=== PATIENT | female | born 1945 | race Caucasian/White ===

== ENCOUNTER 2017-10-07 19:20 | Inpatient (IN) | payer MEDICARE, BC ==
[~2017-10-07] VITALS: Ht 157.5 cm; Wt 62.7 kg
[~2017-10-07 19:20] MED LIST: ACET325T55 PO; CLOP75TA33 PO; ESTR0.624 PO; KRIL500C PO; LEVO50TA PO; LORA1TAB PO; METO-411 PO; PITA4TAB2 PO
[2017-10-07 20:36] LABS: BASOPHILS % (AUTO) 0.2 % (0-1); EOSINOPHILS # (AUTO) 0.2 X10'3 (0-0.9); EOSINOPHILS % (AUTO) 1.9 % (0-6); HEMATOCRIT 39.7 % (35.0-45.0); HEMOGLOBIN 13.7 g/dl (12.0-16.0); LYMPHOCYTES % (AUTO) 18.5 % (21-51); MEAN CORPUSCULAR HEMOGLOBIN 32.2 PG (27.0-31.0); MEAN CORPUSCULAR HGB CONC 34.5 % (33.0-36.5); MEAN CORPUSCULAR VOLUME 93.5 FL (78-98); MEAN PLATELET VOLUME 7.4 FL (7.4-10.4); MONOCYTES # (AUTO) 0.8 X10'3 (0-0.9); MONOCYTES % (AUTO) 7.8 % (2-12); NEUTROPHILS # (AUTO) 7.6 X10'3 (1.8-7.7); NEUTROPHILS % (AUTO) 71.6 % (42-75); PLATELET COUNT 368 X10'3 (140-440); RED BLOOD COUNT 4.24 X10'6 (4.20-5.60); WHITE BLOOD COUNT 10.6 X10'3 (4.5-11.0)
[2017-10-07 21:00] LABS: ALANINE AMINOTRANSFERASE 32 U/L (12-78); ALBUMIN 4.1 G/DL (3.4-5.0); ALBUMIN/GLOBULIN RATIO 1.1 (1.1-1.5); ALKALINE PHOSPHATASE 72 IU/L (46-116); ANION GAP 8 (8-16); ASPARTATE AMINO TRANSFERASE 27 U/L (10-37); BILIRUBIN,TOTAL 0.3 MG/DL (0.1-1.0); BLOOD UREA NITROGEN 39 MG/DL (7-18); BUN/CREATININE RATIO 27.9 (6.6-38.0); CALCIUM 9.6 MG/DL (8.5-10.1); CHLORIDE 105 MMOL/L (99-107); GLUCOSE 129 MG/DL (70-104); MAGNESIUM 2.1 MG/DL (1.5-2.4); POTASSIUM 4.1 MMOL/L (3.5-5.1); SODIUM 143 MMOL/L (135-145); TOTAL CARBON DIOXIDE 30.4 MMOL/L (24-32); TOTAL PROTEIN 7.8 G/DL (6.4-8.2); eGFR 37 ML/MIN
[2017-10-07] MEDS ORDERED: metoprolol tartrate 1mg/ml inj IV ONE (22:15)
[2017-10-07] MEDS ORDERED: acetaminophen 325mg tablet PO PRN (22:30)
[2017-10-07] MEDS ORDERED: magnesium hydroxide 30ml (MOM) UD suspension PO PRN (22:30)
[2017-10-07] MEDS ORDERED: mag hydrox/Alum hydrox/simeth 30ml oral suspension PO PRN (22:30)
[2017-10-07] MEDS ORDERED: ondansetron/PF 4mg/2ml inj IV PRN (22:30)
[2017-10-07] MEDS ORDERED: LORazepam 1 MG tablet PO PRN (22:40)
[2017-10-07] MEDS: normal saline 1000ml 1,000 ML IV SCH (22:41)
[2017-10-07] MEDS: metoprolol tartrate 50mg tablet PO SCH (23:00)
[2017-10-07 23:07] LABS: HEMOGLOBIN A1C 6.4 % (4.5-6.2)
[2017-10-07 23:30] VITALS: BP 143/70
[2017-10-08] VITALS (13 sets, daily range): BP systolic 107–165; BP diastolic 56–89
[2017-10-08] MEDS: normal saline 1000ml 1,000 ML IV SCH (00:03)
[2017-10-08 03:22] LABS: BASOPHILS % (AUTO) 0.5 % (0-1); EOSINOPHILS # (AUTO) 0.2 X10'3 (0-0.9); EOSINOPHILS % (AUTO) 2.2 % (0-6); HEMATOCRIT 35.9 % (35.0-45.0); HEMOGLOBIN 12.5 g/dl (12.0-16.0); LYMPHOCYTES # (AUTO) 2.9 X10'3 (1.1-4.8); LYMPHOCYTES % (AUTO) 33.2 % (21-51); MEAN CORPUSCULAR HEMOGLOBIN 32.3 PG (27.0-31.0); MEAN CORPUSCULAR HGB CONC 34.8 % (33.0-36.5); MEAN CORPUSCULAR VOLUME 92.7 FL (78-98); MEAN PLATELET VOLUME 7.7 FL (7.4-10.4); MONOCYTES # (AUTO) 0.8 X10'3 (0-0.9); MONOCYTES % (AUTO) 8.8 % (2-12); NEUTROPHILS # (AUTO) 4.9 X10'3 (1.8-7.7); NEUTROPHILS % (AUTO) 55.3 % (42-75); PLATELET COUNT 312 X10'3 (140-440); RED BLOOD COUNT 3.88 X10'6 (4.20-5.60); WHITE BLOOD COUNT 8.8 X10'3 (4.5-11.0)
[2017-10-08 03:32] LABS: ALANINE AMINOTRANSFERASE 30 U/L (12-78); ALBUMIN 3.7 G/DL (3.4-5.0); ALBUMIN/GLOBULIN RATIO 1.2 (1.1-1.5); ALKALINE PHOSPHATASE 63 IU/L (46-116); ANION GAP 8 (8-16); ASPARTATE AMINO TRANSFERASE 26 U/L (10-37); BILIRUBIN,TOTAL 0.3 MG/DL (0.1-1.0); BLOOD UREA NITROGEN 37 MG/DL (7-18); BUN/CREATININE RATIO 28.5 (6.6-38.0); CALCIUM 8.8 MG/DL (8.5-10.1); CHLORIDE 106 MMOL/L (99-107); CHOL/HDL RATIO 3.1 (0.00-4.99); CHOLESTEROL 208 MG/DL (0-200); GLUCOSE 97 MG/DL (70-104); HDL CHOLESTEROL 67 MG/DL (35-60); LDL CHOLESTEROL 112 MG/DL (50-100); SODIUM 141 MMOL/L (135-145); TOTAL CARBON DIOXIDE 27.5 MMOL/L (24-32); TOTAL PROTEIN 6.9 G/DL (6.4-8.2); TRIGLYCERIDES 79 MG/DL (20-135); eGFR 40 ML/MIN
[2017-10-08] MEDS ORDERED: levoTHYROXINE 25mcg tablet PO SCH (07:00)
[2017-10-08] MEDS ORDERED: clopidogrel 75mg tablet PO SCH (08:00)
[2017-10-08] MEDS ORDERED: PITAVASTATIN CALCIUM 4 MG PO SCH (08:00)
[2017-10-08] MEDS ORDERED: atorvastatin 20mg tablet PO SCH (08:00)
[2017-10-08] MEDS: metoprolol tartrate 50mg tablet PO SCH (08:18)
[2017-10-08] MEDS ORDERED: metoprolol tartrate 1mg/ml inj IV PRN (09:25)
[2017-10-08] MEDS ORDERED: regadenoson 0.4mg/5ml syringe IV ONE ×2 (09:25→11:55)
[2017-10-08] MEDS ORDERED: aminophylline 250mg/10ml inj. IV PRN (09:25)
[2017-10-08] MEDS ORDERED: nitroGLYCERIN 0.4mg SUBLingual tab SL PRN (09:25)
[2017-10-08] MEDS ORDERED: aminophylline inj. 0 ML IV ONE (11:55)
[2017-10-08] MEDS ORDERED: METO50TA16 PO (16:03)
[2017-10-08] MEDS ORDERED: NITR0.4T51 SL (16:03)
[2017-10-08] MEDS ORDERED: NIT5P TD (16:03)
== END 2017-10-08 17:00 | disposition home or self-care (01) | DRG 305 ==
LOC: ER 19:20 → ED HOLD 22:26 → EDBEDREQ 23:08 → PCU 3S 23:30
PROVIDERS: ADMIT Internal Medicine; ATTEND Internal Medicine
PROC: 4A02XM4 Measurement of Cardiac Total Activity, External Approach (ICD-10-PCS; principal; 2017-10-08)
PROC: 3E073KZ Introduction of Other Diagnostic Substance into Coronary Artery, Percutaneous Approach (ICD-10-PCS; 2017-10-08)
DX: I10 Essential (primary) hypertension (principal); N17.9 Acute kidney failure, unspecified; E78.5 Hyperlipidemia, unspecified; F41.9 Anxiety disorder, unspecified; Z90.710 Acquired absence of both cervix and uterus; Z90.49 Acquired absence of other specified parts of digestive tract; Z88.6 Allergy status to analgesic agent; Z91.041 Radiographic dye allergy status; Z79.899 Other long term (current) drug therapy; Z79.02 Long term (current) use of antithrombotics/antiplatelets; Z86.73 Personal history of transient ischemic attack (TIA), and cerebral infarction without residual deficits
CPT/HCPCS: 36415; 71045; 78452; 80053; 80061; 83036; 83735; 83880; 84484; 85025; 87070; 93005; 93017; 93306; A9500; J0280; J3490; J7030

== ENCOUNTER 2019-05-27 10:42 | Emergency (ER) | payer MEDICARE, BC ==
[~2019-05-27] VITALS: Ht 157.5 cm; Wt 64.0 kg
[~2019-05-27 10:42] MED LIST changes: -KRIL500C PO; -METO-411 PO; +METO50TA16 PO; +NITR0.4T51 SL
[2019-05-27 11:04] LABS: BASOPHILS # (AUTO) 0.1 X10'3 (0-0.2); BASOPHILS % (AUTO) 0.8 % (0-1); EOSINOPHILS # (AUTO) 0.3 X10'3 (0-0.9); EOSINOPHILS % (AUTO) 4.1 % (0-6); HEMATOCRIT 43.3 % (35.0-45.0); HEMOGLOBIN 14.6 g/dl (12.0-16.0); LYMPHOCYTES # (AUTO) 2.9 X10'3 (1.1-4.8); LYMPHOCYTES % (AUTO) 43.1 % (21-51); MEAN CORPUSCULAR HEMOGLOBIN 32.2 PG (27.0-31.0); MEAN CORPUSCULAR HGB CONC 33.6 g/dL (33.0-36.5); MEAN CORPUSCULAR VOLUME 95.7 FL (78-98); MEAN PLATELET VOLUME 7.5 FL (7.4-10.4); MONOCYTES # (AUTO) 0.7 X10'3 (0-0.9); NEUTROPHILS # (AUTO) 2.8 X10'3 (1.8-7.7); PLATELET COUNT 366 X10'3 (140-440); RED BLOOD COUNT 4.52 X10'6 (4.20-5.60); WHITE BLOOD COUNT 6.7 X10'3 (4.5-11.0)
[2019-05-27 11:17] LABS: PARTIAL THROMBOPLASTIN TIME 26 SECONDS (22-32)
[2019-05-27 11:23] LABS: ALANINE AMINOTRANSFERASE 34 U/L (12-78); ALBUMIN/GLOBULIN RATIO 1.1 (1.1-1.5); ALKALINE PHOSPHATASE 66 IU/L (46-116); ANION GAP 10 (8-16); ASPARTATE AMINO TRANSFERASE 27 U/L (10-37); BILIRUBIN,TOTAL 0.3 MG/DL (0.1-1.0); BLOOD UREA NITROGEN 26 MG/DL (7-18); BUN/CREATININE RATIO 21.5 (6.6-38.0); CALCIUM 8.8 MG/DL (8.5-10.1); CHLORIDE 104 MMOL/L (99-107); CREATININE 1.21 MG/DL (0.40-0.90); GLUCOSE 135 MG/DL (70-104); POTASSIUM 3.4 MMOL/L (3.5-5.1); SODIUM 143 MMOL/L (135-145); TOTAL CARBON DIOXIDE 28.6 MMOL/L (24-32); TOTAL PROTEIN 7.8 G/DL (6.4-8.2); eGFR 44 ML/MIN
[2019-05-27 13:44] VITALS: BP 196/84
== END 2019-05-27 13:46 | disposition home or self-care (01) ==
LOC: ER 10:43
DX: R07.89 Other chest pain (principal); I10 Essential (primary) hypertension; Z86.73 Personal history of transient ischemic attack (TIA), and cerebral infarction without residual deficits; Z98.890 Other specified postprocedural states; Z88.8 Allergy status to other drugs, medicaments and biological substances; Z88.5 Allergy status to narcotic agent; Z88.6 Allergy status to analgesic agent; Z79.899 Other long term (current) drug therapy
CPT/HCPCS: 36415; 71045; 80053; 84484; 85025; 85610; 85730; 93005; 99284

== ENCOUNTER 2022-09-03 19:05 | Emergency (ER) | payer MEDICARE, BC ==
[~2022-09-03] VITALS: Ht 157.5 cm; Wt 54.5 kg
[2022-09-03 19:09] VITALS: BP 188/87
[2022-09-03 19:47] LABS: BASOPHILS % (AUTO) 0.6 % (0-1); EOSINOPHILS # (AUTO) 0.2 X10'3 (0-0.9); EOSINOPHILS % (AUTO) 2.6 % (0-6); HEMATOCRIT 42.8 % (35.0-45.0); HEMOGLOBIN 14.4 g/dl (12.0-16.0); LYMPHOCYTES # (AUTO) 2.1 X10'3 (1.1-4.8); LYMPHOCYTES % (AUTO) 27.3 % (21-51); MEAN CORPUSCULAR HEMOGLOBIN 32.4 PG (27.0-31.0); MEAN CORPUSCULAR HGB CONC 33.5 g/dL (33.0-36.5); MEAN CORPUSCULAR VOLUME 96.7 FL (78-98); MEAN PLATELET VOLUME 7.5 FL (7.4-10.4); MONOCYTES # (AUTO) 0.7 X10'3 (0-0.9); MONOCYTES % (AUTO) 9.7 % (2-12); NEUTROPHILS # (AUTO) 4.5 X10'3 (1.8-7.7); NEUTROPHILS % (AUTO) 59.8 % (42-75); PLATELET COUNT 306 X10'3 (140-440); RED BLOOD COUNT 4.43 X10'6 (4.20-5.60); WHITE BLOOD COUNT 7.6 X10'3 (4.5-11.0)
[2022-09-03 19:59] LABS: CLARITY,URINE SLIGHTLY CLOUDY (Clear); COLOR,URINE YELLOW (Yellow); GLUCOSE, URINE NEGATIVE (Neg); KETONES,URINE NEGATIVE (Neg); LEUKOCYTE ESTERASE ,URINE NEGATIVE (Neg); NITRITES, URINE NEGATIVE (Neg); OCCULT BLOOD,URINE NEGATIVE (Neg); PH,URINE 7.5 (4.8-8.0); PROTEIN,URINE NEGATIVE (Neg); UROBILINOGEN,URINE 0.2 E.U/dL (0.2-1.0)
[2022-09-03 20:05] LABS: ALANINE AMINOTRANSFERASE 27 U/L (12-78); ALBUMIN 3.6 G/DL (3.4-5.0); ALBUMIN/GLOBULIN RATIO 0.9 (1.1-1.5); ALKALINE PHOSPHATASE 58 IU/L (46-116); ANION GAP 8 (8-16); ASPARTATE AMINO TRANSFERASE 26 U/L (10-37); BILIRUBIN,TOTAL 0.2 MG/DL (0.1-1.0); BLOOD UREA NITROGEN 22 MG/DL (7-18); BUN/CREATININE RATIO 20.8 (6.6-38.0); CALCIUM 8.9 MG/DL (8.5-10.1); CHLORIDE 101 MMOL/L (99-107); CREATININE 1.06 MG/DL (0.40-0.90); GLUCOSE 98 MG/DL (70-104); LIPASE 156 U/L (73-393); POTASSIUM 3.9 MMOL/L (3.5-5.1); SODIUM 138 MMOL/L (135-145); TOTAL CARBON DIOXIDE 29.4 MMOL/L (24-32); TOTAL PROTEIN 7.4 G/DL (6.4-8.2); eGFR 50 ML/MIN
[2022-09-03 20:06] LABS: UA COLLECTION TYPE CLN CATCH MIDSTREAM
[2022-09-03 20:09] LABS: AMORPHOUS PHOSPHATES 4+; BACTERIA,URINE FEW /HPF (Neg); RBC,URINE 0-2 /HPF (0-2); SQUAMOUS EPITHELIAL CELL,UR NONE SEEN /LPF (FEW); WBC,URINE 0-4 /HPF (0-4)
[2022-09-03] MEDS ORDERED: valacyclovir 500mg tablet PO STA (21:11)
[2022-09-03] MEDS ORDERED: acetaminophen 325mg tablet PO STA (21:27)
[2022-09-03] MEDS ORDERED: VALA100031 PO (21:33)
== END 2022-09-03 21:46 | disposition home or self-care (01) ==
LOC: ER 19:06
DX: B02.9 Zoster without complications (principal); I10 Essential (primary) hypertension; I11.9 Hypertensive heart disease without heart failure; Z88.5 Allergy status to narcotic agent; Z88.8 Allergy status to other drugs, medicaments and biological substances; Z79.899 Other long term (current) drug therapy; Z79.1 Long term (current) use of non-steroidal anti-inflammatories (NSAID)
CPT/HCPCS: 36415; 80053; 81001; 83690; 85025; 99283

== ENCOUNTER 2023-05-08 06:50 | Day surgery (SDC) | payer MEDICARE, BC ==
[2023-05-07 12:53] LABS: BASOPHILS # (AUTO) 0.1 X10'3 (0-0.2); BASOPHILS % (AUTO) 1.5 % (0-1); EOSINOPHILS # (AUTO) 0.2 X10'3 (0-0.9); EOSINOPHILS % (AUTO) 3.4 % (0-6); HEMATOCRIT 40.9 % (35.0-45.0); HEMOGLOBIN 13.6 g/dl (12.0-16.0); LYMPHOCYTES # (AUTO) 1.3 X10'3 (1.1-4.8); LYMPHOCYTES % (AUTO) 26.9 % (21-51); MEAN CORPUSCULAR HGB CONC 33.3 g/dL (33.0-36.5); MEAN PLATELET VOLUME 8.4 FL (7.4-10.4); MONOCYTES # (AUTO) 0.6 X10'3 (0-0.9); NEUTROPHILS # (AUTO) 2.8 X10'3 (1.8-7.7); NEUTROPHILS % (AUTO) 56.2 % (42-75); PLATELET COUNT 300 X10'3 (140-440); RED BLOOD COUNT 4.26 X10'6 (4.20-5.60); RED CELL DISTRIBUTION WIDTH 14.1 % (11.5-14.5); WHITE BLOOD COUNT 4.9 X10'3 (4.5-11.0)
[2023-05-07 12:59] LABS: ALBUMIN 3.7 G/DL (3.4-5.0); ANION GAP 5 (8-16); BLOOD UREA NITROGEN 48 MG/DL (7-18); BUN/CREATININE RATIO 33.8 (10.0-20.0); CALCIUM 9.6 MG/DL (8.5-10.1); CHLORIDE 104 MMOL/L (99-107); CREATININE 1.42 MG/DL (0.40-0.90); GLUCOSE 117 MG/DL (70-104); POTASSIUM 4.2 MMOL/L (3.5-5.1); SODIUM 140 MMOL/L (135-145); TOTAL CARBON DIOXIDE 31.2 MMOL/L (24-32); eGFR 36 ML/MIN
[2023-05-07 13:03] LABS: APTT 25 SECONDS (22-32); PROTHROMBIN TIME 10.6 SECONDS (9.0-12.0)
[~2023-05-08] VITALS: Ht 157.5 cm; Wt 59.4 kg
[2023-05-08] VITALS (14 sets, daily range): BP systolic 97–151; BP diastolic 45–76; PULSE 51–87; RESP 14–17; TEMP 98; O2SAT 95–97
[~2023-05-08 06:50] MED LIST changes: +VALA100031 PO
[2023-05-08] MEDS ORDERED: normal saline 1,000 ML IV SCH (07:10)
[2023-05-08] MEDS ORDERED: LORazepam 0.5 MG tablet PO PRN (07:10)
[2023-05-08] MEDS ORDERED: diphenhydrAMINE 25mg capsule PO PRN (07:10)
[2023-05-08] MEDS ORDERED: SODIUM BICARBONATE IV SCH (07:20)
[2023-05-08] MEDS ORDERED: NORMAL SALINE IV SCH (07:20)
[2023-05-08] MEDS ORDERED: DEXTROSE 5% IV SCH (07:20)
[2023-05-08] MEDS ORDERED: LOSA100T58 PO (07:21)
[2023-05-08] MEDS ORDERED: TRIA1TAB3 PO (07:21)
[2023-05-08] MEDS ORDERED: LEVO75TA PO (07:21)
[2023-05-08] MEDS ORDERED: MELO-100 PO (07:21)
[2023-05-08] MEDS ORDERED: LORA-268 PO (07:21)
[2023-05-08] MEDS ORDERED: MAGN200T PO (07:23)
[2023-05-08] MEDS ORDERED: CALC1TAB PO (07:23)
[2023-05-08] MEDS ORDERED: acetylcysteine 200 MG/ml 4ml vial PO PRN (07:25)
[2023-05-08] MEDS ORDERED: METO50TA16 PO (07:28)
[2023-05-08] MEDS ORDERED: sodium bicarbonate 1meq/ml syr 150 ML in dextrose 5%-water 1,000 ML IV SCH ×2 (07:31→11:24)
[2023-05-08] MEDS ORDERED: famotidine/PF 10 mg/ml inj IV ONE (08:15)
[2023-05-08] MEDS ORDERED: predniSONE 20 mg tablet PO ONE (08:15)
[2023-05-08] MEDS ORDERED: diphenhydrAMINE 25mg capsule PO ONE (08:15)
[2023-05-08] MEDS ORDERED: midazolam 1 mg/ML 2ml injection ONE (08:47)
[2023-05-08] MEDS ORDERED: LIDOcaine 1% (10mg/ml) 2ml vial ONE (08:47)
[2023-05-08] MEDS ORDERED: verapamil 2.5 mg/ml inj IV ONE (08:47)
[2023-05-08] MEDS ORDERED: iohexol 350MG/ML 100ml bottle IV ONE (08:48)
[2023-05-08] MEDS ORDERED: heparin 1,000unit/ml 10ml vial 10 ML ONE (08:48)
[2023-05-08] MEDS ORDERED: fentaNYL/PF 50MCG/1 ML 2ML syringe ONE (08:48)
[2023-05-08] MEDS ORDERED: hydrocortisone sod succ/PF 100mg/2ml inj. ONE (08:50)
[2023-05-08] MEDS ORDERED: diphenhydrAMINE 50 mg/ml inj ONE (08:50)
[2023-05-08] MEDS ORDERED: nitroGLYCERIN 500mcg/5mL D5W 5 ML IV ONE ×2 (08:53→08:56)
[2023-05-08] MEDS ORDERED: iohexol 350 MG/ML 50ML vial IV ONE (09:09)
[2023-05-08] MEDS ORDERED: LIDOcaine 1% (10mg/ml)w/preservative inj. 20ml MDV ONE (10:03)
[2023-05-08] MEDS ORDERED: hydrALAZINE 20mg/ml inj. IV ONE (10:23)
[2023-05-08] MEDS ORDERED: ondansetron/PF 4mg/2ml inj ONE (11:02)
[2023-05-08] MEDS ORDERED: HYDROcodone/acetaminophen 10/325mg tab PO PRN (11:35)
[2023-05-08] MEDS ORDERED: HYDROcodone/acetaminophen 5mg/325mg tablet PO PRN (11:35)
[2023-05-08] MEDS ORDERED: ondansetron/PF 4mg/2ml inj IV PRN (11:35)
[2023-05-08] MEDS ORDERED: proCHLORperazine 10 MG/2 ml inj IV PRN (11:35)
== END 2023-05-08 17:50 | disposition home or self-care (01) ==
LOC: SSTAY O 06:50
PROVIDERS: ATTEND Internal Medicine Cardiovascular Disease
DX: I25.10 Atherosclerotic heart disease of native coronary artery without angina pectoris (principal); I10 Essential (primary) hypertension; E78.5 Hyperlipidemia, unspecified; I70.1 Atherosclerosis of renal artery; I34.0 Nonrheumatic mitral (valve) insufficiency; Z72.89 Other problems related to lifestyle; Z86.73 Personal history of transient ischemic attack (TIA), and cerebral infarction without residual deficits; Z79.01 Long term (current) use of anticoagulants; Z79.899 Other long term (current) drug therapy; Z98.890 Other specified postprocedural states; Z88.8 Allergy status to other drugs, medicaments and biological substances; Z88.5 Allergy status to narcotic agent; Z91.041 Radiographic dye allergy status
CPT/HCPCS: 36415; 76937; 80048; 85025; 85610; 85730; 93005; 93458; 99152; 99153; J0360; J1200; J1644; J1720; J2250; J2405; J3010; J3490; J7030; J7070; J7512; Q0163; Q9967; A4314; A6258; A6449; C1725; C1760; C1894